=== PATIENT | female | born 1955 | race Caucasian/White ===

== ENCOUNTER 2020-09-12 10:51 | Emergency (ER) | payer MEDICARE, OTHER, SELFPAY ==
--- NOTE | ~2020-09-12 | XR_ITS ---
EXAMINATION: XR chest 2V DATE: 09/12/2020 11:31 INDICATION: Cough and wheezing. TECHNIQUE: Frontal and lateral views of the chest were obtained. COMPARISON: None. FINDINGS: There is mild scarring at the lung apices. No pleural effusion or pneumothorax. The heart s ize is normal. IMPRESSION: 1. Mild scarring at the lung apices. Reviewed, dictated and finalized at location A. [facility]
[2020-09-12 11:05] VITALS: BP 155/95; PULSE 89; RESP 18; TEMP 36.7; O2SAT 98
--- NOTE | 2020-09-12 11:26 | ED.GENADULT ---
HPI - General Adult General Chief complaint: Upper Respiratory Infection Stated complaint: wheezing Source: patient Mode of arrival: ambulatory Limitations: no limitations History of Present Illness HPI narrative: Patient presents for evaluation of respiratory complaints for the last 2 days. She reports chest tightness and chest congestion without significant cough. She denies any fever, chills, nausea, vomiting, shortness of breath, loss of taste or smell, otalgia, sore throat. She has a history of atrial fibrillation status post cardiac ablation with successful. She is not on anticoagulation but states she is on a low-dose of an unknown antihypertensive. 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 Her ex-, with whom she lives, is also here being evaluated for respiratory symptoms. Related Data Home Medications Medication Instructions Recorded Confirmed metoprolol succinate [Toprol XL] 50 mg PO 09/12/20 Allergies Allergy/AdvReac Type Severity Reaction Status Date / Time codeine Allergy Nausea and Verified 09/12/20 11:07 Vomiting Review of Systems Review of Systems: Narrative: CONSTITUTIONAL: Denies fever, chills, or sweats. EYES: Denies visual changes, redness, or discharge. ENT: Denies rhinorrhea, congestion, sore throat, or otalgia. CARDIOVASCULAR: Denies chest pain, palpitations, or edema. RESPIRATORY: Denies cough or dyspnea. Reports chest tightness and congestion. GASTROINTESTINAL: Denies abdominal pain, nausea, vomiting, or diarrhea. GENITOURINARY: Denies dysuria or hematuria. SKIN: Denies rash or itching. MUSCULOSKELETAL: Denies back pain, joint pain, or myalgia. NEUROLOGIC: Denies headache, numbness, dizziness, or weakness. PSYCHIATRIC: Denies anxiety or depression. [facility] Past Medical History Medical History (Updated 09/12/20 @ 12:04 by FERNANDO Infante, U[facility]) Atrial fibrillation Surgical History Surgical History Hx of prior ablation treatment Family History Family History Mother Alcoholism Father Suicide Social History Social History Smoking status: Never smoker Alcohol intake: current Alcohol use details: 3 beers 3 times per week Substance use: never Living arrangements: with family Gender identity (if verbalized by the patient): Female Sexual Orientation (if Verbalized by the Patient): Straight or Heterosexual Spiritual care concerns: No Exam Narrative: Exam Narrative: GENERAL: Well-appearing, well-nourished, and in no acute distress. HEAD: Normocephalic, atraumatic. EYES: PERRLA and EOMI. ENT: Nares clear, no rhinorrhea or epistaxis. Mucous membranes moist. Oropharynx without tonsillar hypertrophy exudate or other lesions. Bilateral TMs pearly xavier nonbulging NECK: Supple. No adenopathy or masses. No carotid bruits or JVD CHEST: Clear to auscultation. No respiratory distress. No wheezes rales or rhonchi HEART: Regular rate and rhythm. No murmur heard. Normal peripheral pulses. ABDOMEN: Soft, nontender, nondistended, normal active bowel sounds. EXTREMITIES: Normal range of motion. No edema. SKIN: Warm, dry, no rash. NEURO: No focal deficits. Alert and oriented x3. PSYCH: Normal mood and affect. Course Course Emergency Course: 65-year-old female with 2-day history of chest tightness and chest congestion. Chest x-ray shows right lower lobe scarring consistent with previous history of smoking. Influenza was negative. We will get her set up for Covid screening. Her ex-, here being evaluated as well, also has respiratory symptoms so she likely has some type of viral illness. Vital Signs Vital signs: Vital Signs Temperature 36.7 C 09/12/20 11:05 Pulse Rate 89 09/12/20 11:05 R
--- NOTE | 2020-09-13 10:49 | ECG_ITS ---
Measurements Intervals [place] Rate: 77 P: 75 AR: 135 QRS: 31 QRSD: 82 T: 54 QT: 406 QTc: 462 Interpretive Statements SINUS RHYTHM WITH SINUS ARRHYTHMIA NORMAL ECG Electronically Signed On 09-13-2020 13:36:09 [employer] by Edgar Zuniga D.O.
== END 2020-09-12 12:07 | disposition home or self-care (01) ==
PROVIDERS: Emergency Provider Nurse Practitioner
DX: B34.9 Viral infection, unspecified (principal)
CPT/HCPCS: 71046; 93005; 99213; G0463

== ENCOUNTER 2020-09-14 06:51 | Outpatient (NON) | payer MEDICARE, OTHER, SELFPAY ==
[2020-09-14 19:47] LABS: SARS-CoV-2 RNA PCR Positive
== END 2020-09-14 06:52 ==
LOC: ANHCOVIDDT 06:53
PROVIDERS: Visit Provider Nurse Practitioner
DX: U07.1 COVID-19 (principal)
CPT/HCPCS: 87635; C9803; U0003

== ENCOUNTER 2022-05-02 10:25 | Emergency (ER) | payer MEDICARE, OTHER, SELFPAY ==
--- NOTE | ~2022-05-02 | XR_ITS ---
XR foot LT min 3V DATE: 05/02/2022 10:47 INDICATION: Injury 2 days ago. Fourth metatarsal pain. TECHNIQUE: 4 views COMPARISON: None FINDINGS: No fracture or dislocation, periosteal reaction or bone destruction. Osteopenia. IMPRESSION: No fracture Reviewed, dictated and finalized at location B. IMPRESSION: No fracture
[2022-05-02 10:48] VITALS: BP 132/105; PULSE 102; RESP 20; TEMP 37; O2SAT 100
--- NOTE | 2022-05-02 11:00 | ED.LOWEXIN ---
HPI - Extremity Injury (Lower) General Chief Complaint: Extremity Injury, Lower Stated Complaint: Lt Foot Pain Time Seen by Provider: 05/02/22 11:00 Source: patient, RN notes reviewed and old records reviewed Mode of arrival: ambulatory Limitations: no limitations History of Present Illness HPI Narrative: 66 year old female who presents to [facility] care with complaints of injury to her left foot over 4th metatarsal region dorsally and lateral area of left foot when she hit it on side of roller coaster door she was riding on about 2 weeks ago. Patient reports that she has been taking Ibuprofen and has iced area but not on routine basis. Patient does have some palpable tenderness and swelling to the area of discomfort.Patient reports that she has pain with ambulation denies any pain at rest to her left foot. MD complaint: foot injury Onset (ago): week(s) (2) Injury: Left: foot Type of Injury: blunt Severity scale (1-10): 5 Treatments prior to arrival: cold therapy and NSAIDS Related Data Home Medications Medication Instructions Recorded Confirmed metoprolol succinate 50 mg 50 mg PO DAILY 09/12/20 tablet,extended release 24 hr (Toprol XL) amlodipine 5 mg tablet 1 tablet DAILY 05/02/22 05/02/22 Allergies Allergy/AdvReac Type Severity Reaction Status Date / Time codeine Allergy Hives Verified 05/02/22 10:53 Review of Systems Review of Systems: CONSTITUTIONAL: Denies fever, chills, or sweats. EYES: Denies visual changes, redness, or discharge. ENT: Denies rhinorrhea, congestion, sore throat, or otalgia. CARDIOVASCULAR: Denies chest pain, palpitations, or edema. RESPIRATORY: Denies cough or dyspnea. GASTROINTESTINAL: Denies abdominal pain, nausea, vomiting, or diarrhea. GENITOURINARY: Denies dysuria or hematuria. SKIN: Denies rash or itching. MUSCULOSKELETAL: Denies back pain, positive pain to left foot over fourth metatarsal or myalgia. NEUROLOGIC: Denies headache, numbness, or weakness. PSYCHIATRIC: Denies anxiety or depression. All systems reviewed & are unremarkable except as noted in HPI and below PMFSH Past Medical History Medical History (Updated 05/02/22 @ 14:54 by Carmel Chery NP) Atrial fibrillation Hypertension Surgical History Surgical History (Updated 05/02/22 @ 14:57 by Carmel Chery NP) Hx of prior ablation treatment cardiac Family History Family History Mother Alcoholism Father Suicide Social History Social History Smoking status: Never smoker Alcohol intake: current Alcohol use details: 3 beers 3 times per week Substance use: never Gender identity (if verbalized by the patient): Female Sexual Orientation (if Verbalized by the Patient): Straight or Heterosexual Spiritual care concerns: No Comments At time of signature, agree with nursing past medical, surgical, social and family history. There is no relevant family history pertinent to the presenting complaint Exam Narrative: GENERAL: Well-appearing, well-nourished, and in no acute distress. HEAD: Normocephalic, atraumatic. EYES: PERRLA and EOMI. ENT: Nares clear, no rhinorrhea or epistaxis. Mucous membranes moist. NECK: Supple. No lymphadenopathy CHEST: Clear to auscultation. No respiratory distress. SaO2 100% on room air HEART: Regular rate and rhythm. No murmur heard. Normal peripheral pulses. ABDOMEN: Soft, nontender, nondistended, normal active bowel sounds. EXTREMITIES: Normal range of motion. No edema. Exception noted to dorsal aspect of left foot over fourth metatarsal with some tenderness to palpation, strong pedal pulse with sensation and circulation intact SKIN: Warm, dry, no rash. NEURO: No focal deficits. Alert and oriented x3. Course Course Level of Care: Express Care Visit Vital Signs Vital signs: Vital Signs Temperature 37.0 C 05/02/22 10:48 Pulse Rate 102 H 06
== END 2022-05-02 11:30 | disposition home or self-care (01) ==
PROVIDERS: Emergency Provider Registered Nurse
DX: S90.32XA Contusion of left foot, initial encounter (principal); W22.8XXA Striking against or struck by other objects, initial encounter; I48.91 Unspecified atrial fibrillation; I10 Essential (primary) hypertension
CPT/HCPCS: 73630; 99213; G0463

== ENCOUNTER 2022-08-07 14:59 | Outpatient (CLI) | payer MEDICARE, OTHER, SELFPAY ==
--- NOTE | ~2022-08-07 | DEXA_ITS ---
Bone Density Report Name: ROSARIO NARAYAN Age: 67 Sex: Female Ethnicity: White Date of : 1955 Indication: postmenopausal; screening for osteoporosis; height loss; Referring Provider: SIMÓN HAINES Study: Bone densitometry was performed. Exam Date: August 07, 2022 Accession number: [id number] Bone Density: Region BMD T-score Z-score Classification AP Spine(L1, L2) 0.812 -1.5 0.3 Osteopenia Femoral Neck (Left) 0.645 -1.8 -0.2 Osteopenia Total Hip (Left) 0.745 -1.6 -0.2 Osteopenia Femoral Neck (Right) 0.571 -2.5 -0.8 Osteoporosis Total Hip (Right) 0.596 -2.8 -1.4 Osteoporosis Total Hip Mean 0.671 -2.2 -0.8 Osteopenia World Health Organization criteria for BMD impression classify patients as: Normal (T-score at or above -1.0), Osteopenia (T-score between -1.0 and -2.5), or Osteoporosis (T-score at or below -2.5). 10-year Fracture Risk: FRAX not reported because: Some T-score for Spine Total or Hip Total or Femoral Neck at or below -2.5 Clinical Information Provided by Patient: Has used the following medications: Vitamin D, Calcium Patient maximum height was 65 Menopause Age: 49 Onset of menses at age 11 Number of children 2 Impression: The patient has osteoporosis, based on the Right Total Hip T-score. Discussion: INCREASED RISK OF FRACTURE. BONE DENSITY IS UNDESIRABLY LOW AT ONE OR MORE SKELETAL SITES, CONSISTENT WITH POSTMENOPAUSAL OSTEOPOROSIS. This patient's lowest T-score meets the World Health Organization's (WHO) criteria for osteoporosis at one or more sites (T-score -2.5 or below). In untreated patients, the risk of osteoporotic fracture increases approximately two-fold for each 1.0 SD decrease in T-score. Low bone density is not the only risk factor for fracture; also consider factors such as patient's age, frailty or poor health, risk of falling, risk of injury, previous osteoporotic fracture, family history of osteoporosis, cigarette smoking, low body weight, etc. Not everyone with low bone mineral density has osteoporosis; osteomalacia and other metabolic bone disorders should also be considered. Patients who have osteoporosis should be evaluated for specific diseases and conditions (secondary causes) that may cause or contribute to bone loss. The [place] [employer] Endocrinologists (AACE) and National Osteoporosis Foundation (NOF) recommend pharmacologic intervention for all postmenopausal women whose T-score is in this range. The patient should follow a healthful lifestyle (good nutrition with adequate calcium and vitamin D, and appropriate weight-bearing exercise). Follow-Up: Consider a repeat BMD and Vertebral Fracture Assessment (VFA) exam in 2 years or sooner if medically necessary, to reassess this patient's status. Reported by: [facility] on 08/10/2022 2
--- NOTE | ~2022-08-07 | MM_ITS ---
EXAMINATION: MM scrn jimmy implant BI w samuel HISTORY: Screening mammogram TECHNIQUE: Craniocaudal and mediolateral oblique 3-D tomosynthesis images with implant displacement a nd synthetic 2-D images were generated. Craniocaudal and mediolateral oblique views of the breasts wi thout implant displacement were obtained using full field digital mammography. CAD analysis was submi tted and interpreted. COMPARISON: No prior mammogram is available for comparison at this institution. BREAST PARENCHYMAL COMPOSITION: There are scattered areas of fibroglandular density. FINDINGS: There is no evidence of suspicious mass, calcification, or architectural distortion to sugg est malignancy in either breast. IMPRESSION: 1. No mammographic evidence of malignancy. 2. Recommend routine screening mammography in one year. BI-RADS Category 1: Negative Reviewed, dictated and finalized at location A.
== END 2022-08-07 15:00 | disposition home or self-care (01) ==
LOC: ANHIMG 15:00
PROVIDERS: PCP Nurse Practitioner; Visit Provider Nurse Practitioner
DX: Z12.31 Encounter for screening mammogram for malignant neoplasm of breast (principal); Z78.0 Asymptomatic menopausal state; M85.88 Other specified disorders of bone density and structure, other site; M85.852 Other specified disorders of bone density and structure, left thigh; M85.851 Other specified disorders of bone density and structure, right thigh; M81.0 Age-related osteoporosis without current pathological fracture
CPT/HCPCS: 77063; 77067; 77080

== ENCOUNTER 2023-07-26 13:36 | Emergency (ER) | payer MEDICARE, OTHER, SELFPAY ==
[2023-07-26 13:40] VITALS: BP 143/94; PULSE 68; RESP 18; TEMP 36.6; O2SAT 99
--- NOTE | 2023-07-26 16:20 | ED.LOWEXIN ---
HPI - Extremity Injury (Lower) General Chief Complaint: Extremity Injury, Lower Stated Complaint: R hip pain Time Seen by Provider: 07/26/23 15:50 History of Present Illness HPI Narrative: Patient is a 67-year-old female presenting with right hip pain. Patient states that she has some chronic lower back and hip pain. States that yesterday she picked up the neighbors dog straining her right lower back. States that she has had pain in her right hip and lower back since this time. States that she has been taking Advil with temporary relief. States that the pain is worse with weightbearing. She denies any injuries. States that she has had sciatica in the past and this feels like a dull ache instead of a sharp shooting pain. No numbness or weakness. No saddle anesthesia, bladder or bowel incontinence, fevers. No further complaints. Related Data Allergies Allergy/AdvReac Type Severity Reaction Status Date / Time codeine Allergy Hives Verified 07/26/23 15:48 Review of Systems Review of Systems: All systems reviewed & are unremarkable except as noted in HPI and below Exam Narrative: GENERAL: Well-appearing and in no acute distress. HEAD: Normocephalic, atraumatic. EYES: PERRLA and EOMI. ENT: Nares clear, no rhinorrhea or epistaxis. NECK: Supple. CHEST: No respiratory distress. HEART: Regular rate and rhythm ABDOMEN: Nondistended EXTREMITIES: Normal range of motion. No midline back pain, mild tenderness of right buttocks, no hip tenderness, bilateral DP pulses 2+ SKIN: Warm, dry, no rash. NEURO: Alert and oriented x3. PSYCH: Normal mood and affect. Course Vital Signs Vital signs: Vital Signs Temperature 98 F 07/26/23 13:40 Pulse Rate 68 07/26/23 13:40 Respiratory Rate 18 07/26/23 13:40 Blood Pressure 143/94 H 07/26/23 13:40 Pulse Oximetry 99 07/26/23 13:40 Oxygen Delivery Room Air 07/26/23 13:40 Temperature 98 F 07/26/23 13:40 Pulse Rate 68 07/26/23 13:40 Respiratory Rate 18 07/26/23 13:40 Blood Pressure 143/94 H 07/26/23 13:40 Pulse Oximetry 99 07/26/23 13:40 Oxygen Delivery Room Air 07/26/23 13:40 MDM - Extremity Injury (Lower) MDM Narrative Medical decision making narrative: Patient is a 67-year-old female presenting with right hip pain. Vitals are stable. Exam remarkable for the above. Do not feel imaging is warranted at this time as she denies any red flag symptoms and denies any recent injuries. States that it feels like a dull ache in her right buttocks and right hip. Will treat with IM Toradol and a dose of Flexeril. We will send in for Flexeril and advise she continue taking ibuprofen and Tylenol. Advised PCP and orthopedic follow-up. Appropriate return precautions given. Discharged in stable condition. Differential Diagnosis Differential diagnosis: Likely other (Hip pain, muscle strain, back pain) Medical Records Attestation: I reviewed the patient's medical records. Critical Care Time Critical Care Time Critical Care Time: No Discharge Plan Discharge Clinical Impression: Hip pain, right Patient Disposition: Home, Self-Care Condition: Stable Instructions: Hip Pain (ED) Additional Instructions: Please use Tylenol and ibuprofen for pain control. You may use the muscle relaxer as needed. Please do not drive while taking it. We recommend following up with PCP and orthopedics within 1-3 days. If your symptoms worsen, you develop chest pain, shortness of breath, numbness or weakness, vomiting, fevers >100.4F, or other concerning symptoms arise, please return to the ER. Prescriptions: New cyclobenzaprine 10 mg tablet 10 mg PO TID PRN (Reason: muscle spasm) Qty: 20 0RF Follow-up/Referrals: Kwabena Garza MD [Physician] - Chema Putnam MD [Physician] -
[2023-07-26] MEDS: CYCLOBENZAPRINE HCL 10 MG TABLET PO (16:28)
[2023-07-26] MEDS: KETOROLAC 30 MG/ML VIAL (*BKC) IM (16:28)
== END 2023-07-26 16:49 | disposition home or self-care (01) ==
LOC: ANHED 16:39
PROVIDERS: Emergency Provider Emergency Medicine; PCP Internal Medicine
DX: M25.551 Pain in right hip (principal)
CPT/HCPCS: 96372; 99283; A9270; J1885

== ENCOUNTER → 2023-08-01 10:41 | Outpatient (CLI) | payer MEDICARE, OTHER, SELFPAY ==
--- NOTE | ~2023-08-01 | CT_ITS ---
Noncontrast CT scan of the lumbar spine CLINICAL HISTORY: Back pain TECHNIQUE: Axial noncontrast imaging of the lumbar spine was performed. Sagittal and coronal reformat jhon images were constructed. Dose reduction technique was used on this scan by utilizing automated ex posure control and iterative reconstruction technique. The dose-length product (DLP) was 284.92 mGy-c m. FINDINGS: There is dextroscoliosis of the thoracolumbar spine, incompletely included in the field-of- view. There is 10 mm anterolisthesis of L4 over L5. There is 3 mm retrolisthesis of L3 over L4. At L1-L2, there is minimal disc bulge and mild facet arthropathy. No central canal stenosis. There is probable mild to moderate left neural foraminal narrowing. Right neural foramen preserved. At L2-L3, there is moderate degenerative disc narrowing. There is diffuse disc bulge and mild facet a rthropathy. There is probable mild central canal stenosis. There is mild to moderate left neural fora alis narrowing. Right neural foramen preserved. At L3-L4, there is moderate degenerative disc narrowing. There is diffuse disc bulge and moderate fac et arthropathy. There is right lateral recess stenosis and severe right neural foraminal compromise. There is also probable severe left neural foraminal compromise. At L4-L5, there is disc bulge/uncovering with advanced facet arthropathy. There is probable at least moderate central canal stenosis/thecal sac compression. There is severe right neural foraminal narrow ing, and moderate to severe left neural foraminal narrowing. At L5-S1, there is minimal disc bulge. No central canal stenosis. There is minimal bilateral neural f oraminal narrowing. Paravertebral soft tissues are unremarkable. Impression: Dextroscoliosis of the thoracolumbar spine, incompletely imaged. 10 mm anterolisthesis of L4 over L5. 3 mm retrolisthesis of L3 over L4. Moderate to advanced degenerative spondylosis, as detailed above, worst at L3-L4 and L4-L5. Reviewed, dictated and finalized at location M. Impression: Dextroscoliosis of the thoracolumbar spine, incompletely imaged. 10 mm anterolisthesis of L4 over L5. 3 mm retrolisthesis of L3 over L4. Moderate to advanced degenerative spondylosis, as detailed above, worst at L3-L 4 and L4-L5.
== END ==
PROVIDERS: PCP Nurse Practitioner; Visit Provider Nurse Practitioner
DX: M47.896 Other spondylosis, lumbar region (principal)
CPT/HCPCS: 72131